=== PATIENT | male | born 1955 | race Hispanic/Latino ===

== ENCOUNTER → 2019-04-02 | Outpatient (CLI) | payer MEDICAID | END | disposition home or self-care (01) | LOC: RAH 12:02 | PROVIDERS: ATTEND Internal Medicine Cardiovascular Disease | DX: J94.8 Other specified pleural conditions (principal); J44.9 Chronic obstructive pulmonary disease, unspecified | CPT/HCPCS: 71046 ==

== ENCOUNTER → 2019-04-07 | Outpatient (CLI) | payer MEDICAID ==
[~2019-04-07] MED LIST: ALBUTEROL SULFATE 0.083% 2.5 MG/3 ML INH IH ONE
== END | disposition home or self-care (01) ==
LOC: RESP 10:28
PROVIDERS: ATTEND Internal Medicine Cardiovascular Disease
DX: J44.9 Chronic obstructive pulmonary disease, unspecified (principal); R06.00 Dyspnea, unspecified
CPT/HCPCS: 94060; 94729

== ENCOUNTER → 2019-05-04 | Outpatient (CLI) | payer MEDICAID | END | disposition home or self-care (01) | LOC: SHCH 13:51 | PROVIDERS: ATTEND Internal Medicine Cardiovascular Disease | DX: M47.815 Spondylosis without myelopathy or radiculopathy, thoracolumbar region (principal); I70.0 Atherosclerosis of aorta | CPT/HCPCS: 71046; 93306 ==

== ENCOUNTER → 2023-04-02 | Outpatient (CLI) | payer OTHER, MEDICARE ==
[~2023-04-02] MED LIST changes: +ALBU1.252 IH; -ALBUTEROL SULFATE 0.083% 2.5 MG/3 ML INH IH ONE; +ARIP2TAB20 PO; +ATOR10TA69 PO; +BUDE10.7 IH; +DOXY100C5 PO; +HYDR25TA PO; +IOHEXOL-350 75 ML VIAL IV ONE; +IPRA3AMP24 IH; +LEVO750T68 PO; +MIRT-22 PO; +PRED20TA3 PO; +SERT-440 PO; +TIOT4MIS5 IH; +UMEC62.5 IH
== END | disposition home or self-care (01) ==
LOC: RAH 10:37
PROVIDERS: ATTEND Student in an Organized Health Care Education/Training Program
DX: J43.9 Emphysema, unspecified (principal); J47.9 Bronchiectasis, uncomplicated; J45.998 Other asthma; J98.4 Other disorders of lung; I25.10 Atherosclerotic heart disease of native coronary artery without angina pectoris; M47.815 Spondylosis without myelopathy or radiculopathy, thoracolumbar region
CPT/HCPCS: 71270; Q9967

== ENCOUNTER 2023-04-23 11:00 | Emergency (ER) | payer OTHER, MEDICARE ==
[~2023-04-23] VITALS: Ht 165.1 cm; Wt 84.8 kg
[~2023-04-23 11:00] MED LIST changes: -IOHEXOL-350 75 ML VIAL IV ONE
[2023-04-23] MEDS ORDERED: IPRATROPIUM/ALBUTEROL SULFATE 3 ML SOLUTION IH ONE (11:30)
[2023-04-23 11:34] LABS: BASOPHILS # (AUTO) 0.03 K/uL (0.00-0.20); BASOPHILS % (AUTO) 0.3 % (0.0-5.0); EOSINOPHILS # (AUTO) 0.14 K/uL (0.00-0.70); EOSINOPHILS % (AUTO) 1.6 % (0.0-8.0); HEMATOCRIT 39.2 % (42-54); IMMATURE GRANULOCYTE ABSOLUTE 0.06 K/uL (0-1); LYMPHOCYTES # (AUTO) 0.6 K/uL (1.0-4.8); LYMPHOCYTES % (AUTO) 6.9 % (21.0-51.0); MEAN CORPUSCULAR HEMOGLOBIN 26.2 pg (27.0-33.0); MEAN CORPUSCULAR HGB CONC 31.4 g/dL (32.0-36.0); MEAN CORPUSCULAR VOLUME 83.6 fL (79-99); MONOCYTES # (AUTO) 0.5 K/uL (0.1-1.0); MONOCYTES % (AUTO) 5.4 % (3.0-13.0); NEUTROPHILS # (AUTO) 7.5 K/uL (1.8-7.7); NEUTROPHILS % (AUTO) 85.1 % (40.0-77.0); PLATELET COUNT (AUTO) 205 K/uL (130-400); RED BLOOD CELL COUNT(AUTO) 4.69 MIL/uL (4.50-6.20); RED CELL DISTRIBUTION WIDTH 14.9 % (11.0-15.5); WHITE BLOOD COUNT (AUTO) 8.8 K/uL (4.8-10.8)
[2023-04-23 11:37] LABS: POTASSIUM 4.1 mmol/L (3.5-5.1)
[2023-04-23 11:47] LABS: B-TYPE NATRIURETIC PEPTIDE 53 pg/mL (0-100)
[2023-04-23 11:48] VITALS: PULSE 70; RESP 18
[2023-04-23 11:48] LABS: ALBUMIN 3.8 g/dL (3.5-5.0); BILIRUBIN,TOTAL 0.4 mg/dL (0.2-1.0); TOTAL PROTEIN, SERUM 7.8 g/dL (6.0-8.3)
[2023-04-23 11:50] LABS: ABG BASE EXCESS 7.5 mmol/L (-2.0-3.0); ABG HCO3 36.4 mmol/L (21.0-28.0); ABG OXYGEN SATURATION 97.5 % (95.0-99.0); ABG PCO2 71 mmHg (35-48); ABG PH 7.327 (7.35-7.450); PO2, ARTERIAL BG 109.4 mmHg (83.0-108.0); VENT MODE, BG NC (ROOM AIR)
[2023-04-23 13:42] LABS: SARS-CoV-2, RNA, NAAT NEGATIVE SARS CoV-2 (NEGATIVE)
[2023-04-23 13:47] LABS: INFLUENZA TYPE A Negative For Type A (NEGATIVE); INFLUENZA TYPE B Negative For Type B (NEGATIVE); RSV negative (NEGATIVE)
[2023-04-23 16:56] VITALS: BP 119/72; PULSE 3; RESP 24; O2SAT 96
== END 2023-04-23 17:44 | disposition home or self-care (01) ==
LOC: EDH 11:00
DX: J44.1 Chronic obstructive pulmonary disease with (acute) exacerbation (principal); J43.9 Emphysema, unspecified; R53.1 Weakness; E78.00 Pure hypercholesterolemia, unspecified; I50.9 Heart failure, unspecified; Z20.822 Contact with and (suspected) exposure to COVID-19; Z79.899 Other long term (current) drug therapy
CPT/HCPCS: 99285; 70450; 71046; 87635; 82270; 82550; 83874; 84484; 80053; 82803; 83880; 85025; 87807; 87804 ×2; 36415; 93005; 36600; 94640; C9803